=== PATIENT | male | born 1950 | race Caucasian/White ===

== ENCOUNTER 2016-10-17 09:58 | Emergency (ER) | payer OTHER ==
[~2016-10-17] VITALS: Wt 95.0 kg
[~2016-10-17 09:58] MED LIST: CRES10 PO; DOCU-159 PO; ESOM40CA PO; IBUP-727 PO; PARO40TA79 PO; ZOLPIDEM; tam
[2016-10-17 11:50] LABS: EOSINOPHILS # 0.3 10^3/ul (0.0-0.5); EOSINOPHILS % 2.5 % (0.0-7.0); HEMATOCRIT 43.9 % (42.0-52.0); LYMPHOCYTES # 1.6 10^3/ul (0.8-2.9); LYMPHOCYTES % 14.2 % (15.0-51.0); MEAN CORPUSCULAR HEMOGLOBIN 29.9 pg (29.0-33.0); MEAN CORPUSCULAR HGB CONC 34.2 g/dl (32.0-37.0); MEAN CORPUSCULAR VOLUME 87.4 fl (82.0-101.0); MEAN PLATELET VOLUME 7.9 fl (7.4-10.4); MONOCYTE # 0.6 10^3/ul (0.3-0.9); MONOCYTES % 5.4 % (0.0-11.0); NEUTROPHIL # 8.8 10^3/ul (1.6-7.5); NEUTROPHILS % 77.9 % (39.0-77.0); PLATELET COUNT 244 10^3/UL (140-440); RED BLOOD COUNT 5.02 10^6/ul (4.70-6.10); RED CELL DISTRIBUTION WIDTH 12.8 % (11.5-14.5); UNCORRECTED WBC 11.3 10^3/ul (4.8-10.8); WHITE BLOOD COUNT 11.3 10^3/ul (4.8-10.8)
[2016-10-17 11:51] LABS: CONDITION 1
--- NOTE | 2016-10-17 12:02 | RADRPT ---
PROCEDURE: XR Chest AP portable CLINICAL INDICATION: Chest pain TECHNIQUE: An AP portable radiograph of the chest was submitted. COMPARISON: None. FINDINGS: Support Hardware: None Cardiovascular: The heart is mildly enlarged, the aorta appears quite tortuous, and the pulmonary va sculature is upper normal. Lung [place]: A suboptimal inspiration compresses lung parenchyma exaggerating the interstitial alan ngs but no alveolar infiltrate or nodule is identified. Pleural Spaces: No pneumothorax or pleural effusion is identified. Osseous Structures: The osseous structures appear intact. Soft Tissues: The osseous elements appear generous IMPRESSION: 1. Mild cardiomegaly with atherosclerotic changes to the aorta without CHF. 2. Suboptimal inspiration compresses lung parenchyma. Physician Sia Date Time Electronically viewed and signed by Physician Sia on 10/17/2016 12:01 /
[2016-10-17] MEDS ORDERED: ALBUTEROL 0.5% (NEB) 2.5 MG/0.5 ML AMP HHN STA (12:06)
[2016-10-17 12:09] LABS: INR 0.99; PROTIME 13.1 Sec (12.2-14.2)
[2016-10-17 12:10] LABS: PARTIAL THROMBOPLASTIN TIME 33.9 Sec (25.0-35.0)
[2016-10-17 12:12] LABS: ALBUMIN 3.9 g/dl (3.3-4.9)
[2016-10-17 12:13] LABS: POTASSIUM 4.1 mmol/L (3.5-5.1)
[2016-10-17 12:15] LABS: ALBUMIN/GLOBULIN RATIO 1.3; BILIRUBIN,INDIRECT 0.5 mg/dl (0-1.1); BILIRUBIN,TOTAL 0.5 mg/dl (0.2-1.3); CREATININE 0.71 mg/dl (0.61-1.24); TOTAL PROTEIN 6.9 g/dl (6.1-8.1)
[2016-10-17 12:16] LABS: CALCIUM 9.6 mg/dl (8.4-10.2)
[2016-10-17] MEDS ORDERED: predniSONE 20 MG TAB PO ONE (12:30)
[2016-10-17] MEDS ORDERED: FURO-109 PO (13:28)
[2016-10-17] MEDS ORDERED: FUROSEMIDE 20 MG TAB PO ONE (13:30)
[2016-10-17] MEDS ORDERED: DEXAMETHASONE 4 MG TAB PO ONE (13:30)
--- NOTE | 2016-10-17 13:35 | ERD ---
ER Documentation Chief Complaint Date/Time DATE: 10/17/16 TIME: 13:29 Chief Complaint cough and congestion with sob for the past week. not better with abx HPI This 65-year-old male complains of cough and shortness of breath over the last week. He is prescribed antibiotics by his primary doctor without relief. Primarily complains of shortness of breath with sleeping at night. His symptoms improved with ambulation and sitting up. Denies any fevers, chest pain , leg swelling. He has a history of hypertension and high cholesterol. Denies tobacco. ROS All systems reviewed and are negative except as per history of present illness. Medications Home Meds Active Scripts Furosemide* (Lasix*) 40 Mg Tablet, 40 MG PO DAILY, #5 TAB Prov:TY RASMUSSEN MD 10/17/16 Reported Medications Rosuvastatin Calcium* (Crestor*) 10 Mg Tablet, 10 MG PO DAILY 02/26/12 Esomeprazole Mag Trihydrate (Nexium) 40 Mg Capsule.dr, 40 MG PO DAILY 02/26/12 Paroxetine Hcl* (Paroxetine*) 40 Mg Tablet, 40 MG PO DAILY 02/26/12 Docusate Sodium* (Docusate Sodium*) 100 Mg Capsule, 100 MG PO 02/26/12 [robison] No Conflict Check, 0.4 HS 02/26/12 [zolpinem] No Conflict Check, 5 HS 02/26/12 Ibuprofen (Motrin) 600 Mg Tablet, 600 MG PO BID 02/26/12 Allergies Allergies: Coded Allergies: No Known Drug Allergies (Verified Allergy, Unknown, 02/26/12) PMhx/Soc Anesthesia Reaction: No Hx Neurological Disorder: No Hx Respiratory Disorders: No Hx Cardiac Disorders: No Hx Miscellaneous Medical Probl: No Hx Alcohol Use: No Hx Substance Use: No Hx Tobacco Use: Yes (3 packs per day) Smoking Status: Never smoker Physical Exam Vitals Vital Signs Date Time Temp Pulse Resp B/P Pulse Ox O2 Delivery O2 Flow Rate FiO2 10/17/16 12:30 73 20 21 10/17/16 10:08 98.1 80 22 163/81 97 Physical Exam Const: [] Alert, [id number], speaking complete sentences per Head: Atraumatic Eyes: Normal Conjunctiva ENT: Normal External Ears, Nose and Mouth. Neck: Full range of motion..~ No meningismus. No JVD Resp: Clear to auscultation bilaterally. Limited air movement. No rales, retractions pressure. Possibly increased expiratory phase. Cardio: Regular rate and rhythm, no murmurs Abd: Soft, non tender, non distended. Normal bowel sounds Skin: No petechiae or rashes Back: No midline or flank tenderness Ext: No cyanosis, or edema Neur: Awake and alert Psych: Normal Mood and Affect Result Diagram: 10/17/16 1140 10/17/16 1140 Results 24 hrs Laboratory Tests Test 10/17/16 11:40 Activated Partial Thromboplast Time 33.9Sec Alanine Aminotransferase (ALT/SGPT) 30IU/L Albumin 3.9g/dl Albumin/Globulin Ratio 1.30 Alkaline Phosphatase 70IU/L Anion Gap 14 Aspartate Amino Transf (AST/SGOT) 24IU/L B-Type Natriuretic Peptide 349PG/ML Basophils # 0.010^3/ul Basophils % 0.0% Blood Urea Nitrogen 7mg/dl Calcium Level 9.6mg/dl Carbon Dioxide Level 28mmol/L Chloride Level 103mmol/L Creatinine 0.71mg/dl Direct Bilirubin 0.00mg/dl Eosinophils # 0.310^3/ul Eosinophils % 2.5% Globulin 3.00g/dl Glucose Level 102mg/dl Hematocrit 43.9% Hemoglobin 15.0g/dl INR International Normalized Ratio 0.99 Indirect Bilirubin 0.5mg/dl Lymphocytes # 1.610^3/ul Lymphocytes % 14.2% Mean Corpuscular Hemoglobin 29.9pg Mean Corpuscular Hemoglobin Concent 34.2g/dl Mean Corpuscular Volume 87.4fl Mean Platelet Volume 7.9fl Monocytes # 0.610^3/ul Monocytes % 5.4% Neutrophils # 8.810^3/ul Neutrophils % 77.9% Nucleated Red Blood Cells # 0.010^3/ul Nucleated Red Blood Cells % 0.0/100WBC Platelet Count 52112^3/UL Potassium Level 4.1mmol/L Prothrombin Time 13.1Sec Prothrombin Time Ratio 1.0 Red Blood Count 5.0210^6/ul Red Cell Distribution Width 12.8% Sodium Level 141mmol/L Total Bilirubin 0.5mg/dl Total Protein 6.9g/dl White Blood Count 11.310^3/ul Current Medications Medications (Trade) Dose Ordered Sig/Dina Route PRN Reason Start Time Stop Time Status Last Admin Dose Admin Prednisone (Prednisone) 60 mg ONCE ONCE PO 10/17/16 12:30 10/17/16 12:31 DC 10/17/16 12:53 Albuterol (Proventil 0.5% (Neb)) 5 mg ONCE STAT HHN 10/17/16 12:06 10/17/16 12:16 DC 10/17/16 12:29 Dexamethasone (Decadron) 10 mg ONCE ONCE PO 10/17/16 13:30 10/17/16 13:31 Furosemide (Lasix) 40 mg ONCE ONCE PO 10/17/16 13:30 10/17/16 13:31 Procedures/MDM Chest X-ray 1V Interpreted by me: Soft Tissue: No acute abnormalities Bones: No acute abnormalities Mediastinum/Cardiac Silhouette/Lungs: [No acute abnormalities]. Impression- slight cardiomegaly without evidence of CHF. EKG: Rate/Rhythm: [Normal Sinus Rhythm] QRS, ST, T-waves: [No changes consistent w/ acute ischemia] Impression: [No evidence of ischemia or arrhythmia]. Impression-no acute findings on EKG. CBC shows white blood cell count of 11. Hemoglobin normal. CMP normal. BNP is slightly elevated at 349. Patient was given albuterol treatment 1 and complains of no improvement in sensation of shortness of breath. Patient presents with sensation of shortness of breath and possible. This is more nocturnal dyspnea. There are no signs of significant CHF exacerbation and signs or symptoms not consistent with acute coronary syndrome, pulmonary aneurysm, pneumonia, hypoxia. He may have a slight amount of CHF and will give a trial of Lasix for 1 week. Patient will additionally be given Decadron 10 mg by mouth for possible very mild wheezes cause of symptoms. Patient and family were advised to follow-up with primary doctor and recommending cardiology evaluation for persistent symptoms. Should otherwise return for chest pain, fevers, worsening shortness of breath, chest pain, new or worsening symptoms as directed and aftercare instructions Departure Diagnosis: Primary Impression: Cough Additional Impressions: Upper respiratory infection URI type: unspecified URI Qualified Code: J06.9 - Upper respiratory tract infection, unspecified type Hypertension Hypertension type: essential hypertension Qualified Code: I10 - Essential hypertension Condition: Stable Patient Instructions: Hypertension, Established, Uri, Viral, No Abx (Adult), What Is Heart Failure? Additional Instructions: EKG, x-ray normal. Labs normal except very mild elevation of marker for congestive heart failure. May have very mild CHF and will treat with 1 week of diuretics for this. See primary doctor and chimney builder for further evaluation. Recheck for new or worsening symptoms-chest pain, worsening shortness of breath, fevers. TY RASMUSSEN MD Oct 17, 2016 13:35
== END 2016-10-17 13:54 | disposition home or self-care (01) ==
LOC: FTE 09:58
DX: R05 Cough (principal); J06.9 Acute upper respiratory infection, unspecified; I10 Essential (primary) hypertension; F17.210 Nicotine dependence, cigarettes, uncomplicated
CPT/HCPCS: 36415; 71010; 80053; 83880; 85025; 85610; 85730; 94664; 99285; J7512; 93005